=== PATIENT | male | born 1950 | race Caucasian/White ===

== ENCOUNTER 2018-04-17 09:42 | Inpatient (IN) | payer OTHER ==
[2018-04-17] MEDS ORDERED: LORazepam 2 MG/ML INJ IVP ONE (09:50)
--- NOTE | 2018-04-17 09:54 | EDPHY ---
H & P Time Seen by Provider: 04/17/18 09:49 HPI/ROS: CHIEF COMPLAINT: Head injury, limited+ trauma team activation Limitations: amnesia to event HISTORY OF PRESENT ILLNESS: 68-year-old male with CAD and HTN presents after a fall with a head injury. He was walking on a path, apparently slipped on icy pavement and fell and struck his head. Unconscious for several minutes, according to bystanders. On EMS arrival, he was alert and oriented x1, perseverating and he was quite hypertensive. Right wrist deformity present and splinted by EMS. He is currently alert and oriented x3, systolic blood pressure 200 in route. He has not taken his blood pressure medications this morning. He denies CURRAN, neck pain, rt wrist pain or any other c/o. REVIEW OF SYSTEMS: complete 10 point ROS reviewed and is negative except for the noted elements in the HPI Source: Patient, EMS - Medical/Surgical History PMH: Hypertension CAD, stent Hx Cardiac Disease: Yes - Social History Alcohol Use: Sober Drug Use: None Additional Social History: - Physical Exam Exam: General Appearance: Alert, pleasant and talkative, not confused Head: Right frontoparietal scalp swelling and tenderness Eyes: PERRLA, EOMI ENT, Mouth: rt periorbital ecchymosis, rt infraorbital tenderness, no oral trauma Neck: No midline tenderness, maintained in cervical spine collar Respiratory: No chest wall tenderness, lungs clear bilaterally Cardiovascular: Regular rate and rhythm Abdomen: Abdomen is soft and nontender Skin: No lacerations Back: Normal inspection, no midline T/L/S tenderness (logrolled) Extremities: Pelvis is stable and nontender; right wrist deformity and tenderness Vascular: 2+ radial pulses Neurological: Alert and oriented to person, place and time, normal motor function, normal sensory exam, cranial nerves intact Psychiatric: Mood and affect normal Constitutional: Initial Vital Signs Temperature (C) 36.6 C 04/17/18 09:51 Heart Rate 88 04/17/18 09:51 Respiratory Rate 18 04/17/18 09:51 Blood Pressure 205/93 H 04/17/18 09:51 O2 Sat (%) 96 04/17/18 09:51 O2 Delivery Mode Room Air Allergies/Adverse Reactions: No Known Allergies Allergy (Verified 04/17/18 11:20) Home Medications: Medication Instructions Recorded Aspirin [Aspirin 81mg (*)] 81 mg PO DAILY 04/17/18 Atorvastatin Calcium [Lipitor 20 20 mg PO DAILY 04/17/18 mg (*)] Herbals/Supplements -Info Only 1 ea PO DAILY 04/17/18 Metoprolol Tartrate [Lopressor 25 25 mg PO BID 04/17/18 mg (*)] Medical Decision Making - Diagnostics Imaging Results: Imaging Impressions Cervical Spine CT 04/17/18 09:49 Impression: 1. No acute posttraumatic abnormality identified in the cervical spine. If there is persistent pain or neurologic deficit, consider MRI and/or flexion and extension views if clinically indicated. 2. Limited visualization of fractures and hemorrhage seen on CT head this same day. 3. Multilevel degenerative change, most severe from C5 through T1. 4. Carotid atherosclerosis. Additional findings as above. Findings discussed with KYLEE FISHMAN 04/17/2018 at 11:06. Head CT 04/17/18 09:49 Impression: 1. Left temporal subarachnoid and peripheral parenchymal hemorrhage without mass effect. 2. Non to minimally displaced lateral right orbital and zygomatic arch fractures as above. Findings discussed with KYLEE FISHMAN 04/17/2018 at 11:06. Wrist X-Ray 04/17/18 09:51 Impression: Comminuted intra-articular fracture of the distal radius with moderate dorsal angulation. Imaging: Discussed imaging studies w/ call worker person Radiologist, I viewed and interpreted images myself Procedures: Procedure: Right wrist reduction. Indication: Angulated fracture of the right wrist joint. Risks, benefits, alternatives discussed with the patient and his . A hematoma block using 1% lidocaine was given by me. Post reduction x-ray improved positioning of the comminuted proximal radius fracture. An Orthoglass sugar-tong splint was placed by the termite technician. Neurovascularly intact after application. Post reduction Xray: adequate reduction of dorsal angulation. The procedure was performed by me. ED Course/Re-evaluation: This pt presents after a mechanical fall with a CHI and rt wrist deformity. HTN noted, will obs. CT head/neck and rt wrist Xray ordered. 1000: Generalized seizure activity, Ativan 1 mg IV and Keppra 1 g IV given. Maintained adequate airway, pt stabilized then sent to CT. Neurosurg consulted and pt seen by Dr. Alberto's TAX LAWYER, Kaye. 1025: Returned from CT scan, drowsy, opens eyes to voice, looks at me when I talk, GWYN. CT reveals ICH. Dr. Alysha Lane was consulted for admission. d/w KSR ECM, aware of pt injuries/admission to [facility]. Will send pt's problem list and medication list. 1040: Seen by Dr. Alberto, recommends repeat CT head in am. Rt wrist Xray: angulated and comminuted intraarticular distal radius rx. Hematoma block and reduction by me. Xray confirms adequate reduction, sugartong splint placed. Dr. Raya consulted and will see pt in ICU. Pt remained drowsy throughout the remainder of his ED stay, serial neuro exams unchanged, no focal findings. Drowsiness most likely secondary to Ativan. present, aware of dx, plan for close observation in ICU. BP monitored throughout ED stay, BP normalized, did not require BP management. I spent a total of 40 minutes of critical care time in obtaining history, performing a physical exam, bedside monitoring of interventions, collecting and interpreting tests and discussion with consultants but not including time spent performing procedures. Differential Diagnosis: Differential diagnosis includes though it is not limited to fracture, intracranial hemorrhage, pneumothorax, hemothorax, intra-abdominal hemorrhage. - Data Points Laboratory Results: Laboratory Results 04/17/18 09:40 04/17/18 09:40 04/17/18 04/17/18 04/17/18 10:28 09:50 09:40 WBC RBC Hgb POC Hgb 17.3 gm/dL gm/dL (13.7-17.5) Hct POC Hct 51 % % (40-51) MCV MCH MCHC RDW Plt Count MPV Neut % (Auto) Lymph % (Auto) Valencia % (Auto) Eos % (Auto) Baso % (Auto) Nucleat RBC Rel Count Absolute Neuts (auto) Absolute Lymphs (auto) Absolute Monos (auto) Absolute Eos (auto) Absolute Basos (auto) Absolute Nucleated RBC Immature Gran % Immature Gran # PT INR APTT POC Sodium 142 mEq/L mEq/L (135-145) Sodium 140 mEq/L mEq/L (135-145) POC Potassium 3.7 mEq/L mEq/L (3.3-5.0) Potassium 4.1 mEq/L mEq/L (3.5-5.2) POC Chloride 102 mEq/L mEq/L (97-110) Chloride 103 mEq/L mEq/L (97-110) Carbon Dioxide 24 mEq/l mEq/l (22-31) POC Total CO2 25 mEq/L mEq/L (22-31) Anion Gap 13 mEq/L mEq/L (6-14) POC BUN 20 mg/dL mg/dL (7-23) BUN 19 mg/dL mg/dL (7-23) Creatinine 0.8 mg/dL mg/dL (0.7-1.3) POC Creatinine 0.8 mg/dL mg/dL (0.7-1.3) Estimated GFR > 60 Glucose 131 mg/dL H mg/dL (70-100) POC Glucose 134 mg/dL H mg/dL (70-100) Calcium 9.8 mg/dL mg/dL (8.5-10.4) POC Troponin I 0.00 ng/mL ng/mL (0.00-0.08) Troponin I < 0.012 ng/mL ng/mL (0.000-0.034) 04/17/18 04/17/18 09:40 09:40 WBC 9.51 10^3/uL H 10^3/uL (3.80-9.50) RBC 5.40 10^6/uL 10^6/uL (4.40-6.38) Hgb 16.1 g/dL g/dL (13.7-17.5) POC Hgb Hct 48.3 % % (40.0-51.0) POC Hct MCV 89.4 fL fL (81.5-99.8) MCH 29.8 pg pg (27.9-34.1) MCHC 33.3 g/dL g/dL (32.4-36.7) RDW 13.3 % % (11.5-15.2) Plt Count 293 10^3/uL 10^3/uL (150-400) MPV 10.8 fL fL (8.7-11.7) Neut % (Auto) 55.9 % % (39.3-74.2) Lymph % (Auto) 32.4 % % (15.0-45.0) Valencia % (Auto) 8.1 % % (4.5-13.0) Eos % (Auto) 2.6 % % (0.6-7.6) Baso % (Auto) 0.7 % % (0.3-1.7) Nucleat RBC Rel Count 0.0 % % (0.0-0.2) Absolute Neuts (auto) 5.31 10^3/uL 10^3/uL (1.70-6.50) Absolute Lymphs (auto) 3.08 10^3/uL H 10^3/uL (1.00-3.00) Absolute Monos (auto) 0.77 10^3/uL 10^3/uL (0.30-0.80) Absolute Eos (auto) 0.25 10^3/uL 10^3/uL (0.03-0.40) Absolute Basos (auto) 0.07 10^3/uL 10^3/uL (0.02-0.10) Absolute Nucleated RBC 0.00 10^3/uL 10^3/uL (0-0.01) Immature Gran % 0.3 % % (0.0-1.1) Immature Gran # 0.03 10^3/uL 10^3/uL (0.00-0.10) PT 13.0 SEC SEC (12.0-15.0) INR 0.96 (0.83-1.16) APTT 28.6 SEC SEC (23.0-38.0) POC Sodium Sodium POC Potassium Potassium POC Chloride Chloride Carbon Dioxide POC Total CO2 Anion Gap POC BUN BUN Creatinine POC Creatinine Estimated GFR Glucose POC Glucose Calcium POC Troponin I Troponin I Medications Given: Hydromorphone HCl (Dilaudid) 0.2 - 0.4 mg IVP Q2HRS PRN PRN Reason: Pain, Severe Unable to Take PO Stop: 04/27/18 14:22 Last Admin: 04/17/18 20:07 Dose: 0.4 mg Potassium Chloride/Dextrose/Sod Cl (D5w 1/2 Ns W/ 20 Kcl/L) 1,000 mls @ 75 mls/ hr IV CONT NYASIA Stop: 10/14/18 14:29 Last Admin: 04/17/18 16:03 Dose: 1,000 mls Discontinued Medications Levetiracetam (Keppra (Premix)) 100 mls @ 400 mls/hr IV EDNOW ONE Stop: 04/17/18 10:14 Last Admin: 04/17/18 10:01 Dose: 100 mls Lorazepam (Ativan Injection) 1 mg IVP ONCE ONE Stop: 04/17/18 09:51 Last Admin: 04/17/18 09:52 Dose: 1 mg Ondansetron HCl (Zofran) 4 mg IVP EDNOW ONE Stop: 04/17/18 11:08 Last Admin: 04/17/18 11:09 Dose: 4 mg Point of Care Test Results: Chemistry 04/17/18 04/17/18 10:28 09:50 POC Sodium 142 mEq/L mEq/L (135-145) POC Potassium 3.7 mEq/L mEq/L (3.3-5.0) POC Chloride 102 mEq/L mEq/L (97-110) POC Total CO2 25 mEq/L mEq/L (22-31) POC BUN 20 mg/dL mg/dL (7-23) POC Creatinine 0.8 mg/dL mg/dL (0.7-1.3) POC Glucose 134 mg/dL H mg/dL (70-100) POC Troponin I 0.00 ng/mL ng/mL (0.00-0.08) ISTAT H&H 04/17/18 09:50 POC Hgb 17.3 gm/dL gm/dL (13.7-17.5) POC Hct 51 % % (40-51) Departure - Departure Disposition: [facility] Acute Clinical Impression: Intraparenchymal hemorrhage of brain, Seizure Right wrist fracture Qualifiers: Encounter type: initial encounter Fracture type: closed Qualified Code(s): S62.101A - Fracture of unspecified carpal bone, right wrist, initial encounter for closed fracture Condition: Critical
[2018-04-17 09:56] LABS: PLATELET COUNT 293 10^3/uL (150-400)
[2018-04-17] MEDS ORDERED: levETIRAcetam 1000MG/NACL 100 ML IV ONE ×2 (09:59→10:00)
[2018-04-17 10:10] LABS: INR 0.96 (0.83-1.16)
[2018-04-17] MEDS ORDERED: ONDANSETRON 4 MG/2 ML VIAL IVP ONE (11:07)
[2018-04-17] MEDS ORDERED: ONDANSETRON 4 MG/2 ML VIAL ONE (11:08)
--- NOTE | 2018-04-17 12:43 | GCON ---
[f rep st] CONSULTATION DATE OF CONSULTATION: 04/17/2018 REASON FOR CONSULTATION: Head trauma, status post fall and seizure. HOSPITAL COURSE/HISTORY/MAJOR MEDICAL FINDINGS: The patient is a 68-year-old gentleman who is brought in by EMS after being found down after slipping on ice. He did have a loss of consciousness at the time, but when he was in the emergency room, he was able to give a history to the emergency room physician initially and was moving all extremities. He then had a seizure and was given Ativan for this, and a complete medical history was not obtainable. They have contacted his to obtain more information. REVIEW OF SYSTEMS: Unobtainable as the patient is postictal and was recently given Ativan. PAST MEDICAL HISTORY: Significant for hypertension. PAST SURGICAL HISTORY: Unknown. DRUG ALLERGIES: Unknown. MEDICATIONS: Unknown. FAMILY HISTORY: Unknown. SOCIAL HISTORY: The patient is , otherwise unknown. PHYSICAL EXAM: VITAL SIGNS: BP was 205/93 upon coming to the emergency room, heart rate was 88. He is 96% on room air, temp is 36.6. RESPIRATORY: Patient is breathing on a nasal cannula unlabored. NEUROLOGIC: His pupils are round and reactive to light. He is not following any commands. He does have good tone of all of his muscles. DIAGNOSTIC REVIEW: Patient underwent a head CT, which demonstrated a frontal contusion. ASSESSMENT/PLAN: The patient is a 68-year-old gentleman who sustained a slip and fall on ice who had a seizure in the emergency room, and was found to have a left temporal contusion. The patient was seen both by Dr. Alberto and myself in the emergency room at approximately 10:45. It is reasonable that the patient did have a seizure due to the temporal contusion that he has sustained. He will need to be closely monitored and admitted to the ICU for close observation. We will continue our consultation and following along with the patient. We will continue to reexamine him. Would recommend q.1 hour neuro checks at this time. If the patient develops any change in neurologic or motor exam, please notify Neurosurgery. /[id number]/MODL MTDD
[2018-04-17] MEDS ORDERED: HYDROmorphONE/DILAUDID 1 MG/ML INJ IVP PRN (14:23)
--- NOTE | 2018-04-17 15:02 | GCON ---
[f rep st] CONSULTATION SUPERVISOR CD AREA CONSULTATION REASON FOR ADMISSION: Status post fall with trauma, intraparenchymal hemorrhage. HISTORY OF PRESENT ILLNESS: Mr. Arvizu is a 68-year-old white male with a past medical history incl uding hypertension. He apparently was walking when he slipped and fell and struck his head. This le d to unconsciousness, subsequent EMS transportation to the emergency room. When he arrived to the em ergency room, he was alert and oriented x3, but his blood pressure was quite high. He was brought in with a limited plus trauma activation. He was also found to have a wrist fracture of the distal rad ius. Currently, he is sedated. All history is gleaned from the medical record. Apparently on the orning of admission, he had not taken his blood pressure medication. PAST MEDICAL HISTORY: Significant for hypertension. FAMILY HISTORY: Noncontributory. PAST SURGICAL HISTORY: Unknown. SOCIAL HISTORY: No history of tobacco use. No history of alcohol use. He is , has good [employer] support. PHYSICAL EXAM: VITAL SIGNS: Blood pressure 135/63, pulse 78, respirations 12, temperature 36.6, oxy gen saturation 96% on 2 L. GENERAL: He is a well-developed, well-nourished, elderly white male who is resting comfortably in no acute distress. HEENT: Eyes are PERRL, EOMI. He has bruising around h is left orbit. NECK: He is in a hard C-collar. HEART: Regular rate and rhythm without murmurs, ru bs, gallops. LUNGS: Clear to auscultation. No wheeze or rhonchi. ABDOMEN: Soft, nontender. [place] l sounds are present in all 4 quadrants. EXTREMITIES: No clubbing, cyanosis, or edema. His right a rm is splinted. LABORATORY DATA: White count 9.5, hemoglobin 16, hematocrit 48, platelet count 293. INR 0.96. Sodi um 142, potassium 3.7, chloride 102, CO2 24, BUN 19, creatinine 0.8, glucose 131. CT scan of the hea d revealed a left temporal subarachnoid and peripheral parenchymal hemorrhage without mass effect. T here are nondisplaced lateral right orbital and zygomatic arch fractures. Wrist x-rays reveal a dist al radial fracture. IMPRESSION: 1. Status post fall with trauma. 2. Intraparenchymal hemorrhage. 3. Wrist fracture. 4. History of hypertension. RECOMMENDATIONS: 1. Adequate pain control. 2. Agree with neurosurgical consultation. 3. DVT and PE prophylaxis. 4. Hold anticoagulation for now. 5. Stress ulcer prophylaxis. 6. Adequate nutrition. 7. PT and OT. Thank you very much. /[id number]/MODL
--- NOTE | 2018-04-17 15:25 | CPEKG ---
Test Reason : OPEN Blood Pressure : / mmHG Vent. Rate : 128 BPM Atrial Rate : 153 BPM P-R Int : 183 ms QRS Dur : 085 ms QT Int : 316 ms P-R-T Axes : 054 068 033 degrees QTc Int : 461 ms Atrial fibrillation followed by NSR Confirmed by Bella Maurice ([id number]) on 04/17/2018 3:25:22 PM Referred By: Bella Maurice Confirmed By:Bella Maurice
--- NOTE | 2018-04-17 15:32 | ASMTCMCOM ---
CM Note CM Note Notes: Pt presented to the ED via EMS as a LTA+ after having a fall and hitting his head. Pt apparently was on a walk and slipped, fell and struck his head. Shortly after arrival to the ED, the pt appeared to also have a seizure. Pt admitted for a seizure, intraparenchymal hemorrhage, right wrist fracture. Pt's , Danisha Kumari ([phone]) later arrived to the ED and she was updated on pt's status and POC by ED MD and Dr Lane. This CM spoke w/Danisha at bedside; Danisha and pt have been for 26 years and live in [place]. Danisha states she plans on waiting to contact/e-mail their 26-year-old daughter (who currently works & lives in [facility]) and pt's sister (who is currently in [place]). Danisha expressed no other assistance needs at this time. Exact DC needs TBD. CM to follow. Date Signed: 04/17/2018 03:31 PM Electronically Signed By:Wendie Barber RN
--- NOTE | 2018-04-17 16:01 | PDMN ---
Medical Necessity Medical necessity: MCG: M79 SAH non surgical - 65 yr old who slipped and fell on ice. + LOC, found to have Intraparenchymal hemorrhage, SAH,- nondisplaced orbital and zygomatic arch fxs., wrist fx- distal radial fx- ., pt with Sz in ED., pt not following commands - post ictal. -further monitoring ( q 1 hr checks ) and eval needed
[2018-04-17] MEDS: D5W 1/2 NS W/ 20 KCl/L 1,000 ML IV SCH (16:03)
--- NOTE | 2018-04-17 17:26 | SOAPPROG ---
[facility] Progress Note Assessment/Plan: Assessment: R distal radius fx Plan: No plans for operative treatment at this time remain in splint will re-xray on tuesday to look for displacement see full dictated consult 04/17/18 17:25 Objective: Vital Signs Temp Pulse Resp BP Pulse Ox 36.6 C 74 15 129/66 H 96 04/17/18 09:51 04/17/18 16:00 04/17/18 16:00 04/17/18 16:00 04/17/18 16:00 04/16/18 04/17/18 04/18/18 05:59 05:59 05:59 Output Total 200 Balance -200 PT 13.0 SEC (12.0-15.0) 04/17/18 09:40 INR 0.96 (0.83-1.16) 04/17/18 09:40 ICD10 Worksheet Patient Problems: Problems Problem Status Onset Intraparenchymal hemorrhage of brain Acute Right wrist fracture Acute
--- NOTE | 2018-04-17 18:07 | GCON ---
[f rep st] CONSULTATION DATE OF CONSULTATION: 04/17/2018 CHIEF COMPLAINT: Right distal radius fracture. HISTORY OF PRESENT ILLNESS: This is a 68-year-old male who was found down. He was taken to the [facility] room and admitted to the hospital. He was also found to have a right distal radius fracture wh ich was reduced and splinted by the ER. I was consulted and asked to see him. He complains of pain in the right wrist. He denies other pain in his legs, hips or pelvis, or the left upper extremity. PAST MEDICAL HISTORY: Hypertension. FAMILY HISTORY: Noncontributory. SURGICAL HISTORY: Denies significant contributory surgical history. SOCIAL HISTORY: No history of tobacco. MEDICATIONS: Please see inpatient list. ALLERGIES: Please see inpatient list. PHYSICAL EXAMINATION: GENERAL: He is alert. He is responsive to questions. HEENT: His head shows signs of trauma from his fall. His eyes are equal and reactive. His neck is in a cervical collar. His mouth shows moist mucous membranes. HEART: Regular rate and rhythm. LUNGS: Clear. ABDOMEN: Soft. EXTREMITIES: His lower extremities show no abnormalities, are nontender and neurovascularly intact. His right upper extremity is in a splint. He can move his fingers. Sensation in his left u pper extremity shows no tenderness and good motion. IMAGING: Radiographs show a right distal radius fracture and the postreduction radiographs show impr ovement in the alignment. PLAN: I discussed this with him. At this time, his alignment is acceptable in the postreduction rad iographs. I would have him remain on the splint. We will follow this up with x-rays in approximatel y 4 days to look for displacement. If he does displace, he may require an ORIF of the right distal r adius. This could be done next week when he is cleared from his other injuries and from his intrapar enchymal hemorrhage. If he is able to maintain his alignment in the splint, we will convert him to a cast as an outpatient and treat this non operatively. I have no plans for surgical intervention on this wrist at this time. We will follow him along and get x-rays in 4 days to look for displacement. /[id number]/MODL
--- NOTE | 2018-04-17 20:49 | GHP ---
[f rep st] PREOP HISTORY AND PHYSICAL DATE OF ADMISSION: 04/17/2018 The patient is a 68-year-old male who slipped on the ice and fell, sustaining a loss of consciousness . He also has a right wrist deformity which appears to be a Colles fracture on imaging. Head CT sca n reveals a small intraparenchymal bleed and a cephalohematoma; no fractures. Also has a minimally-d isplaced right lateral orbital fracture and zygomatic arch fractures. He denies any other major comp laints or troubles, although he is somnolent but easy to arouse and responds appropriately. He is ad mitted at this time for observation, orthopedic consultation, and neurosurgery consultation. He appe ared to have a seizure post traumatically before arrival in the emergency room. He has no history of seizures. PAST HISTORY: Positive for hypertension. No major surgeries. No other major medical problems. He has been quite healthy. REVIEW OF SYSTEMS: Negative on a full 10-point review of systems, although it is difficult to be flaco e he is comprehending all the questions. Specifically does not smoke and denies alcohol use. SOCIAL HISTORY: Reveals he is . Does not smoke. PHYSICAL EXAMINATION: GENERAL: Alert 68-year-old male in no acute distress. HEAD and NECK: Right frontal swelling and abrasion with some tenderness. Pupils are equal. EOMs are intact, nonicteric. No oral lesions. Occlusion normal. TMs clear. NECK: Nontender with good range of motion. He is in a cervical collar. CHEST: Clear and symmetric with no rib or sternal tenderness or clavicle abno rmalities. CARDIAC: Regular rhythm without murmurs. ABDOMEN: Soft and nontender without organomeg kevin. : Genitalia are normal. EXTREMITIES: Reveal full range of motion, full pulses. He does spaulding ve a right wrist deformity which is in a posterior splint. BACK: Nontender with no step-offs and no CVA tenderness. NEUROLOGIC: Alert and oriented, but somnolent. Motor function is symmetric and 5+ . Sensory function appears to be intact. Cranial nerves are intact. PSYCH: Reasonably alert and o riented and cooperative. ALLERGIES: None. MEDICATIONS: Aspirin, metoprolol, and Lipitor. FAMILY HISTORY: Noncontributory. IMPRESSION: 1. Closed head injury with subarachnoid hemorrhage. 2. Right orbital zygomatic nondisplaced fractures. 3. Right Colles fracture. PLAN: Admit for ICU observation, neurosurgery consultation, and ortho consultation. He will get a f [facility] CT scan in the morning. Risks and options have been fully discussed, and he understands and wishes to proceed. /[id number]/MODL
--- NOTE | 2018-04-17 20:50 | SOAPPROG ---
SOAP Progress Note Assessment/Plan: Assessment: 68-YEAR-OLD MALE SLIPPED ON THE ICE SUSTAINING A HEAD INJURY WITH LOSS OF CONSCIOUS HE SUSTAINED A INTRAPARENCHYMAL HEMORRHAGE, A NONDISPLACED RIGHT ORBITAL AND ZYGOMATIC FRACTURES, RIGHT COLLES FRACTURE HEENT WITH A RIGHT FRONTAL HEMATOMA AND SOME TENDERNESS, PERRLA, EOMS INTACT CHEST CLEAR AND SYMMETRIC COR REGULAR RHYTHM WITHOUT MURMURS ABDOMEN SOFT NONTENDER EXTREMITIES FULL RANGE OF MOTION FULL PULSES EXCEPT FOR A RIGHT COLLES FRACTURE Plan: ADMIT TO ICU FOR NEURO MONITORING AND NEUROSURGERY CONSULTATION [facility]O CONSULTATION 04/17/18 20:48 Objective: Vital Signs Temp Pulse Resp BP Pulse Ox 37.1 C 69 14 111/86 H 95 04/17/18 20:00 04/17/18 20:00 04/17/18 20:00 04/17/18 20:00 04/17/18 20:00 04/16/18 04/17/18 04/18/18 05:59 05:59 05:59 Intake Total 658 Output Total 900 Balance -242 PT 13.0 SEC (12.0-15.0) 04/17/18 09:40 INR 0.96 (0.83-1.16) 04/17/18 09:40 ICD10 Worksheet Patient Problems: Problems Problem Status Onset Intraparenchymal hemorrhage of brain Acute Right wrist fracture Acute
[2018-04-17] MEDS: levETIRAcetam 750 MG in NS 100 ML IV SCH (22:08)
[2018-04-17] MEDS: METOPROLOL TARTRATE 25 MG TAB PO SCH (22:08)
[2018-04-17] MEDS: ONDANSETRON 4 MG/2 ML VIAL IVP PRN (22:16)
[2018-04-17] MEDS: ACETAMINOPHEN 500 MG TAB PO SCH (22:29)
[2018-04-18] MEDS ORDERED: METOCLOPRAMIDE 10 MG/2 ML VIAL ONE (04:47)
[2018-04-18] MEDS: ONDANSETRON 4 MG/2 ML VIAL IVP PRN (05:30)
[2018-04-18 05:51] LABS: PLATELET COUNT 252 10^3/uL (150-400)
--- NOTE | 2018-04-18 06:25 | SOAPPROG ---
SOAP Progress Note Assessment/Plan: Assessment: 68-YEAR-OLD MALE SLIPPED ON THE ICE SUSTAINING A HEAD INJURY WITH LOSS OF CONSCIOUS HE SUSTAINED A INTRAPARENCHYMAL HEMORRHAGE, A NONDISPLACED RIGHT ORBITAL AND ZYGOMATIC FRACTURES, RIGHT COLLES FRACTURE HEENT WITH A RIGHT FRONTAL HEMATOMA AND SOME TENDERNESS, PERRLA, EOMS INTACT CHEST CLEAR AND SYMMETRIC COR REGULAR RHYTHM WITHOUT MURMURS ABDOMEN SOFT NONTENDER EXTREMITIES FULL RANGE OF MOTION FULL PULSES EXCEPT FOR A RIGHT COLLES FRACTURE Plan: ADMIT TO ICU FOR NEURO MONITORING AND NEUROSURGERY CONSULTATION WELL ORTHO CONSULTATION 04/17/18 20:48 04/18/18 06:23 CERVICAL COLLAR DC'D BY PROTOCOL WITH NO TENDERNESS, FULLROM AND ALERT WITH NEG CT Objective: Vital Signs Temp Pulse Resp BP Pulse Ox 37.3 C 63 13 125/60 H 96 04/18/18 04:00 04/18/18 06:00 04/18/18 06:00 04/18/18 06:00 04/18/18 06:00 Laboratory Results 04/18/18 05:28 04/18/18 05:28 04/17/18 04/18/18 04/19/18 05:59 05:59 05:59 Intake Total 758 Output Total 1600 Balance -842 PT 13.0 SEC (12.0-15.0) 04/17/18 09:40 INR 0.96 (0.83-1.16) 04/17/18 09:40 ICD10 Worksheet Patient Problems: Problems Problem Status Onset Intraparenchymal hemorrhage of brain Acute Right wrist fracture Acute Seizure Acute
[2018-04-18] MEDS: D5W 1/2 NS W/ 20 KCl/L 1,000 ML IV SCH (06:54)
[2018-04-18] MEDS: ACETAMINOPHEN 500 MG TAB PO SCH ×3 (07:43→21:41)
[2018-04-18] MEDS: ASPIRIN 81 MG CHEWABLE TAB PO SCH (08:00)
[2018-04-18] MEDS: ATORVASTATIN CALCIUM 20 MG TAB PO SCH (08:00)
[2018-04-18] MEDS: METOPROLOL TARTRATE 25 MG TAB PO SCH ×2 (08:00→21:42)
[2018-04-18] MEDS: levETIRAcetam 750 MG in NS 100 ML IV SCH (08:02)
--- NOTE | 2018-04-18 08:24 | TRAUMAPN ---
Trauma Progress Note Assessment/Plan: 68yo M s/p fall on ice admitted with CHI with intraparenchymal hemorrhage, R orbital and zygomatic arch fx, R distal radius fx. Tertiary survey negative for additional injuries Consult ENT Dr. Rojas for facial fractures Repeat head CT this am - stable. Per NSG, f/u with Dr. Alberto in 4 weeks. Continue Keppra until outpatient f/u with Neurology R wrist fx - continue splint. Reimage on day #4. If displaced, will plan ORIF per Dr. Raya's note. Non-weight bearing Dispo: likely transfer to floor if cleared by NSG. Seen with Dr. Rivera. S: slept overnight. no headache. pain in R wrist. no change in vision. no hearing deficits. nausea this am O: General: Pleasant, well-nourished and well-groomed man in no acute distress, lying in bed, comfortable HENT: Facial abrasions and ecchymosis of right face. no gross hearing deficits , mucous membranes moist, pupils equal and round Neck: No cervical tenderness Lungs: Clear to auscultation bilaterally, No increased work of breathing, supplemental oxygen Cardiac: Regular rate, no peripheral edema Abdomen: Bowel sounds present, soft and non tender Skin: Warm and dry. MSK: RUE in splint, neurovascular intact of distal RUE Psych: Mood and affect normal Neuro: Cranial nerves 2-12 grossly intact Objective: Vital Signs Temp Pulse Resp BP Pulse Ox 36.7 C 69 10 L 138/71 H 99 04/18/18 07:48 04/18/18 07:48 04/18/18 07:48 04/18/18 07:48 04/18/18 07:48 Laboratory Results 04/18/18 05:28 04/18/18 05:28 04/17/18 04/18/18 04/19/18 05:59 05:59 05:59 Intake Total 1818 Output Total 1999 Balance -182 PT 13.0 SEC (12.0-15.0) 04/17/18 09:40 INR 0.96 (0.83-1.16) 04/17/18 09:40
--- NOTE | 2018-04-18 08:41 | PDINTPN ---
Pay Clerk Progress Note Assessment/Plan: Assessment/plan: * Status post fall * Closed head injury with intraparenchymal hemorrhage -repeat CT scan shows no change * Right orbital and zygomatic arch fractures * Wrist fracture-reduced in the emergency room -continue splint -continue pain control * Hypertension-controlled * PT/OT * Out of bed to chair * Disposition-likely stable for transfer to floor Subjective: Resting comfortably. Complains of minimal right wrist pain. Objective: Vital Signs Temp Pulse Resp BP Pulse Ox 36.7 C 69 10 L 138/71 H 99 04/18/18 07:48 04/18/18 07:48 04/18/18 07:48 04/18/18 07:48 04/18/18 07:48 Laboratory Results 04/18/18 05:28 04/18/18 05:28 04/17/18 04/18/18 04/19/18 05:59 05:59 05:59 Intake Total 1818 Output Total 2000 Balance -182 PT 13.0 SEC (12.0-15.0) 04/17/18 09:40 INR 0.96 (0.83-1.16) 04/17/18 09:40 - Time Spent With Patient Time Spent With Patient: 35 min of time spent with patient, over 1/2 involved with coordination of care or counseling. Case discussed with nursing Physical Exam - Physical Exam General Appearance: alert, no apparent distress EENT: PERRL/EOMI, other (Right orbital bruising) Neck: non-tender Respiratory: chest non-tender, lungs clear, normal breath sounds Cardiac/Chest: normal peripheral pulses, regular rate, rhythm Peripheral Pulses: 2+: carotid (R), carotid (L), femoral (R), femoral (L), dorsalis-pedis (R), dorsalis-pedis (L) Abdomen: normal bowel sounds, non-tender, soft Male Genitalia: deferred Rectal: deferred Skin: normal color, warm/dry Extremities: other (Right wrist splinted) Neuro/Psych: no motor/sensory deficits, alert, normal mood/affect, oriented x 3 ICD10 Worksheet Patient Problems: Problems Problem Status Onset Intraparenchymal hemorrhage of brain Acute Right wrist fracture Acute Seizure Acute
--- NOTE | 2018-04-18 09:48 | NEUSURGPN ---
Assessment/Plan: 68 yo male s/p fall with left temporal contusion Repeat head CT stable - neuro stable - PT/OT - no repeat head CT unless clinically declines - continue Keppra upon discharge. Recommend outpatient FU with neurology to determine when can stop Keppra - please contact neurosurgery with any changes in neuro status/exam - stable to transfer to the floor - will sign off and follow peripherally. FU as outpatient with Dr. Alberto in [address] Alberto. Subjective: Doing well this morning. No headache, nausea, vomiting. Objective: Awake. Alert. PERRL. EOMI Facial expression symmetrical Muscle strength full at 07/16 - Physician Discussed Patient with : [facility] Physical Exam - Vitals, I&O, Labs I and O 04/17/18 04/18/18 04/19/18 05:59 05:59 05:59 Intake Total 1818 Output Total 1999 Balance -182 Weight 90 kg Intake: Oral (ml) 700 IV Infused (ml) 1118 D5W 1/2 NS W/ 20 KCl/L 1, 1118 000 ml @ 75 mls/hr IV CONT [place] Rx#:[id number] Output: Urine (ml) 1800 Urinal 1800 Emesis (ml) 200 Vital Signs Temp Pulse Resp BP Pulse Ox 36.7 C 69 10 L 138/71 H 99 04/18/18 07:48 04/18/18 07:48 04/18/18 07:48 04/18/18 07:48 04/18/18 07:48 Laboratory Results 04/18/18 05:28 04/18/18 05:28 ICD10 Worksheet Patient Problems: Problems Problem Status Onset Intraparenchymal hemorrhage of brain Acute Right wrist fracture Acute Seizure Acute
--- NOTE | 2018-04-18 15:52 | ASMTCMCOM ---
CM Note CM Note Notes: Pt is a [place] Pt. Will need coordination to arrange follow-up care. At this time PT rec: Inpatient Rehab; OT rec: outpatient. CM to follow as needs progress. Plan: Inpt rehab. Date Signed: 04/18/2018 03:51 PM Electronically Signed By:NASIM Solis
[2018-04-18] MEDS: levETIRAcetam 250 MG TAB PO SCH (21:41)
[2018-04-18] MEDS: ZOLPIDEM TARTRATE 5 MG TAB PO PRN (21:43)
[2018-04-19 05:39] LABS: PLATELET COUNT 256 10^3/uL (150-400)
[2018-04-19] MEDS: ACETAMINOPHEN 500 MG TAB PO SCH ×3 (05:54→22:01)
[2018-04-19] MEDS: levETIRAcetam 250 MG TAB PO SCH ×2 (09:14→20:41)
[2018-04-19] MEDS: ATORVASTATIN CALCIUM 20 MG TAB PO SCH (09:15)
[2018-04-19] MEDS: METOPROLOL TARTRATE 25 MG TAB PO SCH ×2 (09:15→20:42)
[2018-04-19] MEDS: ASPIRIN 81 MG CHEWABLE TAB PO SCH (09:15)
--- NOTE | 2018-04-19 10:16 | GDS ---
[f rep st] DISCHARGE SUMMARY PRESENT ILLNESS: The patient is a 68-year-old male who fell on the ice, sustaining a right Colles fracture, small intraparenchymal head bleed, right zygoma fracture. He was seen in the emergency department. A variety of scans were done including head CT, cervical spine CT. The initial head CT showed a left temporal subarachnoid and peripheral parenchymal hemorrhage without mass effect, and noted was the minimally displaced lateral right orbital zygomatic arch fractures. A followup scan showed no increase in bleeding and Neurosurgery did not recommend any further scans, follow up with them in [address] Raya from Orthopedic Surgery saw the patient __for the wrist fracture. A sugar-tong splint was placed and he was recommended to get followup films in several days as the patient has [facility] insurance, he would likely followup with [facility]. He was started on Keppra prophylactically for seizures. This will be continued as an outpatient, and he needs to follow up with Neurology or Neurosurgery at [facility] to discuss when to stop this medication. While the zygoma fracture looks nondisplaced and nonoperative, consultation has been requested by Dr. Rojas to advise on this. Again, the patient will likely for insurance reasons wish to follow up with [facility]. At the time of discharge, the patient is ambulating, tolerating a diet, not needing much pain medicine, although he will be given some [place] on discharge. FINAL DIAGNOSES: 1. Fall. 2. Intraparenchymal brain hemorrhage as described above. 3. Colles fracture, right wrist. 4. Nondisplaced zygoma fracture, right. PLAN: Discharge home on Keppra, [place]. Followup was discussed above. /[id number]/MODL MTDD
--- NOTE | 2018-04-19 14:53 | ASMTCMCOM ---
CM Note CM Note Notes: Today OT rec home/HHC/24/hr supervision, PT rec HHC/24/hr supervision/SNF. Pt does not qualify for [facility] inpatient rehab. Referral sent to [facility] in [facility], they decline authorizing SNF and report no auth needed for HHC. Referral sent to [facility] in [facility], they can accept pt for PT/OT. Pt Danisha is off of work and able to provide 24/hr supervision for now at least until Tuesday. Danisha provides this CM her work's HR paperwork for MD to fill out and she is hoping to be able to use her FMLA to stay home with pt all next week. Danisha is provided the [employer] for unskilled home care in case she needs to hire supervision. notified the FMLA paperwork is in front of pt chart. CM to follow. D/c plan of care: Home with [facility] and 24/hr supervision Date Signed: 04/19/2018 02:52 PM Electronically Signed By:CARLITA Roca
[2018-04-19] MEDS: ZOLPIDEM TARTRATE 5 MG TAB PO PRN (19:08)
[2018-04-20 07:10] VITALS: BP 151/88
[2018-04-20] MEDS: METOPROLOL TARTRATE 25 MG TAB PO SCH (08:33)
[2018-04-20] MEDS: ACETAMINOPHEN 500 MG TAB PO SCH (08:33)
[2018-04-20] MEDS: ATORVASTATIN CALCIUM 20 MG TAB PO SCH (08:34)
[2018-04-20] MEDS: ASPIRIN 81 MG CHEWABLE TAB PO SCH (08:34)
[2018-04-20] MEDS: levETIRAcetam 250 MG TAB PO SCH (08:34)
--- NOTE | 2018-04-20 12:24 | PDIAF ---
- Diagnosis Code Status: Full Code - Medication Management Discharge Medications: electronically signed and located in the Home Medication List. - Orders Services needed: Home Care, Physical Therapy, Occupational Therapy Home Care Face to Face: I certify that this patient was under my care and that I had the required [id number] encounter meeting the encounter requirements on the discharge day. My findings support the fact that the patient is homebound as defined in Home Care Face to Face Continued: CMS Chapter 7 Medicare Benefits Manual 30.1.1 , The condition of the patient is such that there exists a normal inability to leave home and consequently, leaving home would require a considerable and taxing effort. Diet Recommendation: no restrictions on diet Diet Texture: Regular Texture Diet (dc after seen by dr graf re zygoma fx) Additional Instructions: 1. Continue Keppra for seizure prophylaxis 2. See Neurology as an outpatient to determine when Keppra can be discontinued. Associated Neurologists [phone] non wt bearing on right wrist and hand stay in splint repeat xrays on tuesday - Follow Up Care Current Providers and Referrals: Levi Graf MD [Medical Doctor] - 3-5 days Ronald Raya MD [Medical Doctor] - 1-2 days Patient,NotPresent [Unknown] - As per Instructions Manuel Alberto MD [Medical Doctor] - (Follow up in 4 weeks)
--- NOTE | 2018-04-20 14:46 | ASMTLACE ---
LACE Length of stay for Answers: 4-6 days current admission Acuity / Level of Answers: Yes Care: Did the patient have an inpatient admission? Comorbidities - select Answers: Other Notes: HTN all that apply # of Emergency department Answers: 1-2 visits in the last 6 months Score: 9 Date Signed: 04/20/2018 02:45 PM Electronically Signed By:CARLITA Roca
--- NOTE | 2018-04-20 14:53 | ASMTCMCOM ---
CM Note CM Note Notes: Pt medically stable for d/c home with [facility] and 04/10 supervision. Orders sent to [facility] in [employer]. [facility] informed in [employer] pt PCP is Denton Castro at [place]. Pt provided [facility] paperwork. Date Signed: 04/20/2018 02:52 PM Electronically Signed By:CALRITA Roca
--- NOTE | 2018-04-20 14:53 | ASDISCHSUM ---
Discharge Information Plan Status:Home with Home Health Medically Cleared to Leave: Discharge Date:04/20/2018 01:40 PM CM D/C Disposition: ADT D/C Disposition:Home, Routine, Self-Care Projected Discharge Date:04/20/2018 11:00 AM Transportation at D/C: Discharge Delay Reason: Follow-Up Date:04/20/2018 11:00 AM Discharge Slot: Final Diagnosis: Placement Information Referral Type:*[facility]/SNF Referral ID:[id number] Provider Name: Address 1: Phone Number: Address 2: Fax Number: City: Selection Factors: State: Referral Type:*Home Health Care Services Referral ID:[id number] Provider Name:[facility] Address 1:[address] [place] [address] Address 2: City:[place] Selection Factors: State:[place] Patient Contact Information Contact Name:EUGENIOElisha Relationship: Address:[address] [place] [address] Work Phone: City:[place] Alternate Phone: State/Zip Code:[place] [address] Email: Financial Information Financial Class:HMO and PPO Plans Primary Plan Desc:[facility] Primary Plan Number:[id number] Secondary Plan Desc: Secondary Plan Number: Assessment Information [facility] Progress Note CM Note CM Note Notes: Pt presented to the ED via EMS as a LTA+ after having a fall and hitting his head. Pt apparently was on a walk and slipped, fell and struck his head. Shortly after arrival to the ED, the pt appeared to also have a seizure. Pt admitted for a seizure, intraparenchymal hemorrhage, right wrist fracture. Pt's , Danisha Kumari ([phone]) later arrived to the ED and she was updated on pt's status and POC by ED MD and Dr Lane. This CM spoke w/Danisha at bedside; Danisha and pt have been for 26 years and live in [place]. Danisha states she plans on waiting to contact/e-mail their 26-year-old daughter (who currently works & lives in [facility]) and pt's sister (who is currently in [place]). Danisha expressed no other assistance needs at this time. Exact DC needs TBD. CM to follow. Date Signed: 04/17/2018 03:31 PM Electronically Signed By:Wendie Barber RN LACE ROSA Length of stay for Answers: 4-6 days current admission Acuity / Level of Answers: Yes Care: Did the patient have an inpatient admission? Comorbidities - select Answers: Other Notes: HTN all that apply # of Emergency department Answers: 1-2 visits in the last 6 months Score: 9 Date Signed: 04/20/2018 02:45 PM Electronically Signed By:CARLITA Roca [facility] CM Progress Note CM Note CM Note Notes: Pt is a [facility] Pt. Will need coordination to arrange follow-up care. At this time PT rec: Inpatient Rehab; OT rec: outpatient. CM to follow as needs progress. Plan: Inpt rehab. Date Signed: 04/18/2018 03:51 PM Electronically Signed By:NASIM Solis [facility] CM Progress Note CM Note CM Note Notes: Today OT rec home/HHC/24/hr supervision, PT rec HHC/24/hr supervision/SNF. Pt does not qualify for [facility] inpatient rehab. Referral sent to [facility] in [place], they decline authorizing SNF and report no auth needed for HHC. Referral sent to [facility] in [place], they can accept pt for PT/OT. Pt Danisha is off of work and able to provide 24/hr supervision for now at least until Tuesday. Danisha provides this CM her work's HR paperwork for MD to fill out and she is hoping to be able to use her FMLA to stay home with pt all next week. Danisha is provided the [employer] for unskilled home care in case she needs to hire supervision. MD notified the FMLA paperwork is in front of pt chart. CM to follow. D/c plan of care: Home with [facility] and 24/hr supervision Date Signed: 04/19/2018 02:52 PM Electronically Signed By:CARLITA Roca [facility] CM Progress Note CM Note CM Note Notes: Pt medically stable for d/c home with [facility] and 24/7 supervision. Orders sent to [facility] in [place]. [facility] informed in [place]. [facility] pt PCP is Denton Castro at [facility]. Pt provided FMLA paperwork. Date Signed: 04/20/2018 02:52 PM Electronically Signed By:CARLITA Roca [facility]
== END 2018-04-20 13:40 | disposition home health service (06) | DRG 83 ==
LOC: EDUNIT# → F2N 12:35 → F3N 04-18 17:25
PROVIDERS: ADMIT Surgery; ATTEND Surgery
PROC: 2W3CX1Z Immobilization of Right Lower Arm using Splint (ICD-10-PCS; principal; 2018-04-17)
DX: S06.369A Traumatic hemorrhage of cerebrum, unspecified, with loss of consciousness of unspecified duration, initial encounter (principal); R56.1 Post traumatic seizures; S52.531A Colles' fracture of right radius, initial encounter for closed fracture; S02.19XA Other fracture of base of skull, initial encounter for closed fracture; S02.40EA Zygomatic fracture, right side, initial encounter for closed fracture; W00.0XXA Fall on same level due to ice and snow, initial encounter; Y92.480 Sidewalk as the place of occurrence of the external cause; I25.10 Atherosclerotic heart disease of native coronary artery without angina pectoris; I10 Essential (primary) hypertension; R40.2412 Glasgow coma scale score 13-15, at arrival to emergency department
CPT/HCPCS: 82435-PO; 82565-PO; 82947-PO; 84132-PO; 84295-PO; 84484-ER; 84520-PO; 85014-ER; 92507-GN; 92523-GN; 96365; 96366; 97112-GP; 97116-GP; 97162-GP; 97165-GO; 97530-GO; 97535-GO; G0390; J1170; J1953; J2405; J2765